=== PATIENT | male | born 1950 | race Caucasian/White ===

== ENCOUNTER 2017-06-06 00:20 | Inpatient (IN) | payer MEDICARE ==
[~2017-06-06] VITALS: Ht 185.4 cm; Wt 79.1 kg
--- NOTE | ~2017-06-06 | HP ---
History And Physical [id number] [facility] [place]. [address] NAME: LUCRETIA SIMMONS : 46 STATUS : ADM IN PAT#: [id number] AGE: 66 ADM/REG DATE : 06/06/17 MR#: [id number] REPORT SERV DATE: 06/07/17 DICTATED BY: CED HACKETT DATE: 06/06/17 REPORT STATUS : Draft TRANSCRIBED BY: MODSherry DATE: 06/06/17 DATE OF ADMISSION: 06/06/2017 POINT OF ENTRY: Emergency Department. PRIMARY CARE PHYSICIAN: Dr. Ami Garcia. PRIMARY UROLOGIST: Dr. Rajat Duque. PRIMARY BUS DISPATCHER INTERSTATE: Dr. Emerson at [place]. CHIEF COMPLAINT: Fevers and palpitations. HISTORY OF PRESENT ILLNESS: Mr. Simmons is a 66-year-old gentleman with a history of BPH status post TURP, complicated by bladder neck contracture, status post recent bladder neck dilatation, who presents to the emergency department today with reports of palpitations and fevers. The patient underwent bladder neck dilatation on 05/28/[address] Duque. Michelle catheter was left in place with plans to keep it in place for approximately 10 days. He also completed a five-day course of prophylactic Keflex, which he states he completed on Wednesday. The patient states his symptoms first began on Wednesday when he noted some skipped beats as well as some racing heart rates, which he describes as palpitations, but these heart rates were in the 80s to 90s. Beginning on Wednesday, he then started to develop low-grade fevers, initially to 99 range, but then became 101.4. He called the urologist on-call and spoke with Dr. Michelle, who wrote a prescription for Keflex and instructed him to present to the emergency department if his fever did not come down, and in fact, his fever went up to 101.6 and therefore presented to the emergency department. Initial evaluation in the emergency department notable for atrial fibrillation, with a temperature of 99 degrees Fahrenheit. Vital signs were stable. His white count was elevated at 25,000 with 13% bands. Urinalysis was positive for urinary tract infection. The patient was given some IV Rocephin as well as some fluids and admitted to the Hospitalist Service. The patient denies any chest pain, palpitations, shortness of breath, abdominal pain, nausea, vomiting, diarrhea, constipation, melena, hematochezia, hemoptysis, or hematemesis. He does state his urine was a little darker, but denied any odor to it. REVIEW OF SYSTEMS: Comprehensive review of systems otherwise negative, unless, listed in the history of present illness. PREVIOUS MEDICAL HISTORY: History And Physical [address] [address] NAME: LUCRETIA SIMMONS : 46 STATUS : ADM IN [facility]#: [id number] AGE: 66 ADM/REG DATE : 06/06/17 MR#: [id number] REPORT SERV DATE: 06/07/17 DICTATED BY: CED HACKETT DATE: 06/06/17 REPORT STATUS : Draft TRANSCRIBED BY: TOMMIE DATE: 06/06/17 1. BPH, status post TURP. 2. Bladder neck contracture, status post dilatation. 3. Paroxysmal atrial fibrillation, on Eliquis. 4. History of ventricular tachycardia, status post cardiac ablation. 5. Hypertension. 6. Basal cell carcinoma of the skin. 7. History of nontuberculous mycobacteria. SURGICAL HISTORY: 1. TURP. 2. Prostate laser vaporization. 3. Bladder neck dilatation. 4. Cardiac ablation. 5. Shoulder replacement. 6. Tonsillectomy. 7. Spinal fusion. ALLERGIES: TO CIPROFLOXACIN, IV DYE, DOXYCYCLINE, AND TETRACYCLINE. HOME MEDICATIONS: Pending at the time of dictation. SOCIAL HISTORY: Denies any tobacco or illicits. Occasional alcohol use. FAMILY MEDICAL HISTORY: Mother of old age into her mid 80s. Father with coronary artery disease. Siblings with lupus and liver cancer. LABS AND IMAGIN. White count is 25.5, hemoglobin is 15.1, hematocrit is 43.6, platelet count is 151 with 13% bands. 2. Sodium is 136, potassium 4.0, chloride 102, carbon dioxide 28, BUN 15, creatinine 1.10, glucose is 139, calcium is 9.2, protein 7.0, albumin is 3.6, bilirubin is 0.9, ALT 26, AST 19, alk phos is 93. 3. Lactic acid is 1.6. 4. CT scan of the abdomen and pelvis per overnight virtual radiology read shows no evidence of any obstruction, pyelonephritis, or inflammatory process. 5. Urinalysis: Specific gravity is 1.015, hazy, with large leukocyte esterase, large blood, with greater than 182 red blood cells as well as white blood cells per high- powered field, with rare yeast. PHYSICAL EXAMINATION: VITAL SIGNS: Temperature is 99.1 degrees Fahrenheit, pulse is 85, respirations 18, saturating 79% on room air, blood pressure 125/76. On recheck, blood pressure is now 142/87, pulse is in the 80s. GENERAL: The patient is awake, alert, in no acute distress. Resting comfortably. He is a well-developed, well-nourished male. HEENT: Atraumatic, normocephalic. Moist mucous membranes. Pupils are equal, round, reactive to light and accommodation. Extraocular eye movements intact. No scleral icterus. History And Physical [address] [address] NAME: LUCRETIA SIMMONS : 46 STATUS : ADM IN [facility]#: [id number] AGE: 66 ADM/REG DATE : 06/06/17 MR#: [id number] REPORT SERV DATE: 06/07/17 DICTATED BY: CED HACKETT DATE: 06/06/17 REPORT STATUS : Draft TRANSCRIBED BY: TOMMIE DATE: 06/06/17 NECK: No jugular venous distention. No carotid bruits. CARDIAC: Regular rate and rhythm. No murmurs, rubs, or gallops. Normal S1, normal S2. LUNGS: Clear to auscultation bilaterally. No wheezes, rhonchi, or crackles. ABDOMEN: Soft, nontender, nondistended with good bowel sounds. No rebound, guarding, or rigidity. EXTREMITIES: Warm and perfused. No cyanosis, clubbing, or edema. SKIN: Warm and dry. PSYCH: Affect appropriate. NEURO: Alert and oriented x3. Cranial nerves 2 through 12 grossly intact. Speech is normal. Gait not assessed. ASSESSMENT AND PLAN: Mr. Simmons is a 66-year-old gentleman who presents with fevers and found to have evidence of a catheter-associated urinary tract infection as well as sepsis. PROBLEM LIST: 1. Catheter-associated urinary tract infection, present on admission. 2. Sepsis. 3. History of paroxysmal atrial fibrillation. 4. History of ventricular tachycardia. 5. History of hypertension. PLAN: 1. Catheter-associated urinary tract infection. We will place the patient on IV vancomycin and cefepime. He does have a urine culture from a few years ago growing Enterococcus faecalis, which is why we are adding on vancomycin. We will consult the patient's primary urologist, Dr. Duque, for assistance as the patient was scheduled to have his Michelle catheter out after 10 days, which happens to be today. Follow up urine culture results. 2. Sepsis. The patient meets criteria with fevers at home as well as leukocytosis and bandemia. Lactic acid is within normal limits. Procalcitonin is also negative. Follow up blood cultures as well as urine culture results. Provide broad-spectrum antibiotics as well as IV fluid hydration. 3. Paroxysmal atrial fibrillation. The patient currently is in normal sinus rhythm. Continue the patient's home medications. 4. DVT prophylaxis. The patient is on Eliquis. 5. Code status. The patient wished to be full code. MARY/TOMMIE Ced Hackett MD / [id number] CC: History And Physical [address] [address] NAME: LUCRETIA SIMMONS : 46 STATUS : ADM IN [facility]#: [id number] AGE: 66 ADM/REG DATE : 06/06/17 MR#: [id number] REPORT SERV DATE: 06/07/17 DICTATED BY: CED HACKETT DATE: 06/06/17 REPORT STATUS : Draft TRANSCRIBED BY: TOMMIE DATE: 06/06/17 Ami Garcia M.D. Rajat Duque M.D. Edwin Emerson III, M.D., F.A.C.C.
--- NOTE | ~2017-06-06 | DS ---
Discharge Summary [address] [place]. [address] NAME: LUCRETIA MENSAH : 46 STATUS : DIS IN PAT#: [id number] AGE: 66 ADM/REG DATE : 06/06/17 MR#: [id number] REPORT SERV DATE: 06/11/17 DICTATED BY: JUAN COLLAZO DATE: 06/11/17 REPORT STATUS : Draft TRANSCRIBED BY: MODL DATE: 06/11/17 ADMISSION DATE: 06/06/2017 DISCHARGE DATE: 06/11/2017 DISCHARGE DIAGNOSES: 1. Urinary tract infection sepsis with Pseudomonas. 2. Pseudomonas bacteremia from the catheter related to urinary tract infection with Pseudomonas. 3. Paroxysmal atrial fibrillation, on Eliquis. 4. Allergies to quinolone. DISC SANDER: Dr. Duque. HISTORY OF PRESENT ILLNESS: This is a 66-year-old male patient who came to the hospital with fever and chills after the procedure. Please see dictated H and P. HOSPITAL COURSE: He was admitted to hospital with a UTI sepsis that was related with a catheter-related UTI. He was put on broad-spectrum antibiotics because he was allergic to quinolone. Culture came back positive in the blood and the urine with Pseudomonas. Again, the patient is allergic to quinolones, so cefepime was elected to be a treatment of choice of antibiotics. Home health was arranged. The patient received a PICC line and will be discharged to home with cefepime 2 g IV q.8 hours until 06/25/2017. DISPOSITION: The patient is discharged to home in stable condition. Dr. Duque will follow outpatient IV antibiotic treatment. EKL/MODL Juan Collazo M.D. / [id number] CC: London Flood M.D.
--- NOTE | ~2017-06-06 | CN ---
Consultation Report [facility] [address] [place]. [address] NAME: TORSTEN SIMMONS : 46 STATUS : ADM IN PAT#: [id number] AGE: 66 ADM/REG DATE : 06/06/17 MR#: [id number] REPORT SERV DATE: 06/06/17 DICTATED BY: TORSTEN SETHI DATE: 06/06/17 REPORT STATUS : Draft TRANSCRIBED BY: MODL DATE: 06/06/17 CONSULTATION DATE OF CONSULTATION: 06/06/2017 This consultation is done for Dr. Rajat Duque on his behalf during his absence. REASON FOR CONSULTATION: Urinary tract infection. REQUESTING PHYSICIAN: Hospitalist Service. IMPRESSION: 1. Catheter-associated urinary tract infection. 2. Recent bladder neck dilation. 3. History of TURP. RECOMMENDATIONS: 1. The patient's fever has resolved with intravenous vancomycin and cefepime. I would continue this at least for now. 2. Urine cultures are pending, see what they show up. 3. Dr. Duque will return tomorrow. The Sethi catheter was scheduled to be removed tomorrow in his office. I will let him make that assessment as to whether to remove the catheter completely and give him a voiding trial or to change it for clean catheter. DISCUSSION: Mr. Simmons is a 66-year-old male who had a cystoscopy, dilation of bladder neck on 05/28/[address] Duque. The patient has had a Sethi catheter in since then. He was on Keflex. He finished his Keflex approximately 48 hours ago. He subsequently began to develop fevers getting as high as 101. He was instructed to come to the emergency room to seek further care. PAST MEDICAL HISTORY: Significant for BPH, paroxysmal atrial fibrillation, hypertension. PAST SURGICAL HISTORY: Includes TURP, cystoscopy and bladder neck dilation, laser surgery on his prostate, shoulder surgery. MEDICATIONS: I do not have a list of his current home medications. At the hospital here, he is on Maxipime and vancomycin. PHYSICAL EXAMINATION: VITAL SIGNS: Last set of vital signs were temperature of 98, blood pressure 114/61, pulse 72, respirations 16, oxygen saturation 98%. GENERAL: He is awake and alert. He is in a pleasant mood. He is in no acute distress. He does not appear toxic. HEENT: His sclerae are anicteric. Consultation Report [facility] [address] [place]. [address] NAME: TORSTEN SIMMONS : 46 STATUS : ADM IN PAT#: [id number] AGE: 66 ADM/REG DATE : 06/06/17 MR#: [id number] REPORT SERV DATE: 06/06/17 DICTATED BY: TORSTEN SETHI DATE: 06/06/17 REPORT STATUS : Draft TRANSCRIBED BY: MODL DATE: 06/06/17 NECK: Supple. LUNGS: Clear. HEART: The heart has regular rate and rhythm. ABDOMEN: Soft and nontender. Flanks are nontender. GENITOURINARY: There is a urethral catheter in his penis. It is draining clear urine. Testes are descended. Nontender. EXTREMITIES: Lower extremities show no deformities. SKIN: Warm and dry without rashes. STUDIES: The patient has had a CT scan of the abdomen and pelvis showing a catheter in place, a thick-walled bladder. No hydronephrosis and no stones. His electrolytes were normal. His glucose was mildly elevated at 139, but it was not fasting. Serum creatinine was 1.1. His white blood cell count was 25,000, hemoglobin 15, hematocrit 43%. Urinalysis showed a large amount of blood, a number of red cells and white cells, no yeast. PF/TOMMIE Torsten Sethi M.D. / [id number] CC: London Ritchie M.D.
[~2017-06-06 00:20] MED LIST: ELIQUIS 5 MG TAB5 MG PO; LOP25 PO; MULTIVIT/MIN PO; PRINZIDE1 TAB PO; VIAGRA25 PO
[2017-06-06 01:20] LABS: BASOPHILS 0.1 %; BASOPHILS ABSOLUTE 0.03 10/3/uL (0.0-0.16); EOSINOPHILS 0.3 %; EOSINOPHILS ABSOLUTE 0.08 10/3/uL (0.0-0.53); HEMATOCRIT 43.6 % (40.0-51.0); HEMOGLOBIN 15.1 g/dL (13.6-17.8); IMMATURE GRANULOCYTES 0.4 %; IMMATURE GRANULOCYTES ABSOLUTE 0.11 10/3/uL (0.0-0.11); LYMPHOCYTES 4.4 %; LYMPHOCYTES ABSOLUTE 1.11 10/3/uL (0.67-4.30); MANUAL DIFF NO %; MEAN CORPUS HGB CONC 34.6 g/dL (32.0-36.0); MEAN CORPUSCULAR HEMOGLOB 31.2 pg (26.0-34.0); MEAN CORPUSCULAR VOLUME 90.1 fL (80-100); MEAN PLATELET VOLUME 11.3 fL (9.2-13.0); MONOCYTES 8.4 %; MONOCYTES ABSOLUTE 2.09 10/3/uL (0.21-1.20); NEUTROPHILS 86.4 %; NEUTROPHILS ABSOLUTE 21.58 10/3/uL (2.02-8.40); PLATELET COUNT 151 10/3/uL (150-400); RBC DISTRIBUTION WIDTH 12.4 % (12.0-16.0); RED CELL COUNT 4.84 10/6/uL (4.7-6.1)
[2017-06-06 01:42] LABS: BAND NEUTROPHILS 13 %; ER DIFF TAT 0 Hrs 26 Mins; LYMPHOCYTES 2 %; MONOCYTES 2 %; PLATELET ESTIMATE ADQ (ADEQUATE); RBC MORPHOLOGY NORM (NORMAL); SEGMENTED NEUTROPHIL (0) 83 %; TOTAL NUCLEATED CELLS 100
[2017-06-06 01:48] LABS: ALBUMIN 3.6 G/DL (3.5-5.0); CALCIUM, SERUM 9.2 MG/DL (8.5-10.4); CHLORIDE, SERUM 102 MMOL/L (96-112); CO2 (CARBON DIOXIDE) 28 MMOL/L (24-34); GFR AFRICAN AMERICAN 80 ML/MIN (>=60); GFR NON AFRICAN AMERICAN 69 ML/MIN (>=60); SGOT(AST) 19 U/L (5-40); SGPT(ALT) 26 U/L (5-65); TOTAL BILIRUBIN 0.9 MG/DL (0-1.2)
[2017-06-06 01:56] LABS: A/G RATIO 1.1 (0.7-1.9); ALKALINE PHOSPHATASE 93 U/L (45-117); BUN (BLOOD UREA NITROGEN) 15 MG/DL (6-23); GLOBULIN 3.4 G/DL (2.5-4.1); GLUCOSE, SERUM 139 MG/DL (60-99); SODIUM, SERUM 136 MMOL/L (135-148)
[2017-06-06 03:03] LABS: ASCORBIC ACID (UR NOT ORDER) 20 (NEG); BILIRUBIN, URINE NEGATIVE (NEG); ER URINALYSIS TAT 0 Hrs 00 Mins; KETONE, URINE NEGATIVE (NEG); LEUKOCYTE ESTERASE(NOT OR LARGE (NEG); NITRITE (URINE) NEG (NEG)
[2017-06-06 03:04] LABS: WBC (NOT ORDERED) (RFLEX) > 182 (0-5)
[2017-06-06 04:04] LABS: LACTATE 1.6 MMOL/L (0.3-2.4)
[2017-06-06 04:10] LABS: PROCALCITONIN 0.32 ng/mL (<0.5)
[2017-06-07 05:18] LABS: HEMOGLOBIN 12.7 g/dL (13.6-17.8); MEAN CORPUSCULAR HEMOGLOB 30.9 pg (26.0-34.0); MEAN CORPUSCULAR VOLUME 90.8 fL (80-100); MEAN PLATELET VOLUME 11.6 fL (9.2-13.0); PLATELET COUNT 140 10/3/uL (150-400); RBC DISTRIBUTION WIDTH 12.4 % (12.0-16.0); RED CELL COUNT 4.11 10/6/uL (4.7-6.1); WHITE BLOOD CELLS 22.9 10/3/uL (4.5-10.5)
[2017-06-07 05:19] LABS: HEMATOCRIT 37.3 % (40.0-51.0); MANUAL DIFF YES %
[2017-06-07 05:28] LABS: BUN (BLOOD UREA NITROGEN) 13 MG/DL (6-23); CALCIUM, SERUM 8.3 MG/DL (8.5-10.4); CHLORIDE, SERUM 107 MMOL/L (96-112); CO2 (CARBON DIOXIDE) 25 MMOL/L (24-34); CREATININE 0.91 MG/DL (0.70-1.30); GFR AFRICAN AMERICAN 100 ML/MIN (>=60); GFR NON AFRICAN AMERICAN 86 ML/MIN (>=60); GLUCOSE, SERUM 118 MG/DL (60-99); POTASSIUM, SERUM 4.2 MMOL/L (3.5-5.3); SODIUM, SERUM 139 MMOL/L (135-148)
[2017-06-07 06:20] LABS: BAND NEUTROPHILS 11 %; IMMATURE GRANS ABSOLUTE (CALC) 0.23 10/3/uL (0.0-0.11); LYMPHOCYTES 4 %; LYMPHOCYTES ABSOLUTE (CALC) 0.92 10/3/uL (0.67-4.30); METAMYELOCYTES 1 %; MONOCYTES 5 %; MONOCYTES ABSOLUTE (CALC) 1.15 10/3/uL (0.21-1.20); NEUTROPHILS ABSOLUTE (CALC) 20.61 10/3/uL (2.02-8.40); PLATELET ESTIMATE SLT DEC (ADEQUATE); SEGMENTED NEUTROPHIL (0) 79 %; TOTAL NUCLEATED CELLS 100; TOXIC GRANULATION 1+
[2017-06-07 06:21] LABS: RBC MORPHOLOGY NORM (NORMAL)
[2017-06-08 07:55] LABS: BASOPHILS 0.2 %; BASOPHILS ABSOLUTE 0.03 10/3/uL (0.0-0.16); EOSINOPHILS 3.4 %; EOSINOPHILS ABSOLUTE 0.48 10/3/uL (0.0-0.53); HEMOGLOBIN 12.5 g/dL (13.6-17.8); IMMATURE GRANULOCYTES 0.4 %; IMMATURE GRANULOCYTES ABSOLUTE 0.05 10/3/uL (0.0-0.11); LYMPHOCYTES 10.3 %; LYMPHOCYTES ABSOLUTE 1.46 10/3/uL (0.67-4.30); MEAN CORPUS HGB CONC 33.8 g/dL (32.0-36.0); MEAN CORPUSCULAR HEMOGLOB 30.7 pg (26.0-34.0); MEAN CORPUSCULAR VOLUME 90.9 fL (80-100); MEAN PLATELET VOLUME 11.2 fL (9.2-13.0); MONOCYTES 6.5 %; MONOCYTES ABSOLUTE 0.92 10/3/uL (0.21-1.20); NEUTROPHILS 79.2 %; NEUTROPHILS ABSOLUTE 11.22 10/3/uL (2.02-8.40); PLATELET COUNT 155 10/3/uL (150-400); RBC DISTRIBUTION WIDTH 12.5 % (12.0-16.0); RED CELL COUNT 4.07 10/6/uL (4.7-6.1); WHITE BLOOD CELLS 14.2 10/3/uL (4.5-10.5)
[2017-06-08 07:56] LABS: MANUAL DIFF NO %
[2017-06-08 08:04] LABS: BUN (BLOOD UREA NITROGEN) 12 MG/DL (6-23); CALCIUM, SERUM 7.9 MG/DL (8.5-10.4); CHLORIDE, SERUM 112 MMOL/L (96-112); CO2 (CARBON DIOXIDE) 24 MMOL/L (24-34); CREATININE 0.89 MG/DL (0.70-1.30); GFR AFRICAN AMERICAN 102 ML/MIN (>=60); GFR NON AFRICAN AMERICAN 88 ML/MIN (>=60); GLUCOSE, SERUM 86 MG/DL (60-99); POTASSIUM, SERUM 3.7 MMOL/L (3.5-5.3); SODIUM, SERUM 143 MMOL/L (135-148); VANCOMYCIN TROUGH 11.5 MCG/ML (10.0-20.0)
[2017-06-09 05:23] LABS: BASOPHILS 0.3 %; BASOPHILS ABSOLUTE 0.03 10/3/uL (0.0-0.16); EOSINOPHILS 5.9 %; EOSINOPHILS ABSOLUTE 0.58 10/3/uL (0.0-0.53); HEMATOCRIT 35.8 % (40.0-51.0); HEMOGLOBIN 12.5 g/dL (13.6-17.8); IMMATURE GRANULOCYTES 0.5 %; IMMATURE GRANULOCYTES ABSOLUTE 0.05 10/3/uL (0.0-0.11); LYMPHOCYTES 16.8 %; LYMPHOCYTES ABSOLUTE 1.65 10/3/uL (0.67-4.30); MANUAL DIFF NO %; MEAN CORPUS HGB CONC 34.9 g/dL (32.0-36.0); MEAN CORPUSCULAR HEMOGLOB 31.4 pg (26.0-34.0); MEAN CORPUSCULAR VOLUME 89.9 fL (80-100); MONOCYTES 6.9 %; MONOCYTES ABSOLUTE 0.68 10/3/uL (0.21-1.20); NEUTROPHILS 69.6 %; NEUTROPHILS ABSOLUTE 6.84 10/3/uL (2.02-8.40); PLATELET COUNT 174 10/3/uL (150-400); RBC DISTRIBUTION WIDTH 12.3 % (12.0-16.0); RED CELL COUNT 3.98 10/6/uL (4.7-6.1); WHITE BLOOD CELLS 9.8 10/3/uL (4.5-10.5)
[2017-06-09 05:34] LABS: BUN (BLOOD UREA NITROGEN) 18 MG/DL (6-23); CALCIUM, SERUM 8.1 MG/DL (8.5-10.4); CHLORIDE, SERUM 110 MMOL/L (96-112); CO2 (CARBON DIOXIDE) 25 MMOL/L (24-34); CREATININE 0.95 MG/DL (0.70-1.30); GFR AFRICAN AMERICAN 95 ML/MIN (>=60); GFR NON AFRICAN AMERICAN 82 ML/MIN (>=60); GLUCOSE, SERUM 84 MG/DL (60-99); POTASSIUM, SERUM 3.9 MMOL/L (3.5-5.3); SODIUM, SERUM 142 MMOL/L (135-148)
[2017-06-10 08:20] LABS: BASOPHILS 0.3 %; BASOPHILS ABSOLUTE 0.04 10/3/uL (0.0-0.16); EOSINOPHILS 2.7 %; EOSINOPHILS ABSOLUTE 0.33 10/3/uL (0.0-0.53); HEMATOCRIT 39.4 % (40.0-51.0); HEMOGLOBIN 13.6 g/dL (13.6-17.8); IMMATURE GRANULOCYTES 0.5 %; IMMATURE GRANULOCYTES ABSOLUTE 0.06 10/3/uL (0.0-0.11); LYMPHOCYTES 11.8 %; LYMPHOCYTES ABSOLUTE 1.42 10/3/uL (0.67-4.30); MANUAL DIFF NO %; MEAN CORPUS HGB CONC 34.5 g/dL (32.0-36.0); MEAN CORPUSCULAR HEMOGLOB 30.6 pg (26.0-34.0); MEAN CORPUSCULAR VOLUME 88.7 fL (80-100); MEAN PLATELET VOLUME 10.9 fL (9.2-13.0); MONOCYTES 6.3 %; MONOCYTES ABSOLUTE 0.76 10/3/uL (0.21-1.20); NEUTROPHILS 78.4 %; NEUTROPHILS ABSOLUTE 9.41 10/3/uL (2.02-8.40); PLATELET COUNT 199 10/3/uL (150-400); RBC DISTRIBUTION WIDTH 12.5 % (12.0-16.0); RED CELL COUNT 4.44 10/6/uL (4.7-6.1)
[2017-06-10 08:41] LABS: ALBUMIN 3.2 G/DL (3.5-5.0); ALKALINE PHOSPHATASE 88 U/L (45-117); BUN (BLOOD UREA NITROGEN) 15 MG/DL (6-23); CALCIUM, SERUM 8.8 MG/DL (8.5-10.4); CHLORIDE, SERUM 107 MMOL/L (96-112); CO2 (CARBON DIOXIDE) 24 MMOL/L (24-34); CREATININE 0.81 MG/DL (0.70-1.30); GFR AFRICAN AMERICAN 106 ML/MIN (>=60); GFR NON AFRICAN AMERICAN 91 ML/MIN (>=60); GLOBULIN 3.1 G/DL (2.5-4.1); GLUCOSE, SERUM 92 MG/DL (60-99); POTASSIUM, SERUM 3.5 MMOL/L (3.5-5.3); SGOT(AST) 20 U/L (5-40); SGPT(ALT) 33 U/L (5-65); SODIUM, SERUM 140 MMOL/L (135-148); TOTAL BILIRUBIN 0.7 MG/DL (0-1.2); TOTAL PROTEIN 6.3 G/DL (6.0-8.5)
[2017-06-10 12:15] LABS: ASCORBIC ACID (UR NOT ORDER) NEG (NEG); BILIRUBIN, URINE NEGATIVE (NEG); KETONE, URINE 20 MG/DL (NEG); LEUKOCYTE ESTERASE(NOT OR NEG (NEG); WBC (NOT ORDERED) (RFLEX) 6 (0-5)
[2017-06-11 05:27] LABS: BUN (BLOOD UREA NITROGEN) 14 MG/DL (6-23); CALCIUM, SERUM 8.6 MG/DL (8.5-10.4); CHLORIDE, SERUM 109 MMOL/L (96-112); CO2 (CARBON DIOXIDE) 25 MMOL/L (24-34); CREATININE 0.98 MG/DL (0.70-1.30); GFR AFRICAN AMERICAN 91 ML/MIN (>=60); GFR NON AFRICAN AMERICAN 79 ML/MIN (>=60); GLUCOSE, SERUM 88 MG/DL (60-99); SODIUM, SERUM 141 MMOL/L (135-148)
[2017-06-11 06:52] LABS: BASOPHILS 0.3 %; BASOPHILS ABSOLUTE 0.03 10/3/uL (0.0-0.16); EOSINOPHILS ABSOLUTE 0.32 10/3/uL (0.0-0.53); HEMATOCRIT 37.5 % (40.0-51.0); HEMOGLOBIN 12.9 g/dL (13.6-17.8); IMMATURE GRANULOCYTES 0.9 %; LYMPHOCYTES 18.7 %; LYMPHOCYTES ABSOLUTE 2.02 10/3/uL (0.67-4.30); MEAN CORPUS HGB CONC 34.4 g/dL (32.0-36.0); MEAN CORPUSCULAR HEMOGLOB 30.4 pg (26.0-34.0); MEAN CORPUSCULAR VOLUME 88.2 fL (80-100); MEAN PLATELET VOLUME 10.8 fL (9.2-13.0); MONOCYTES 8.3 %; NEUTROPHILS 68.8 %; NEUTROPHILS ABSOLUTE 7.44 10/3/uL (2.02-8.40); PLATELET COUNT 204 10/3/uL (150-400); RBC DISTRIBUTION WIDTH 12.4 % (12.0-16.0); RED CELL COUNT 4.25 10/6/uL (4.7-6.1); WHITE BLOOD CELLS 10.8 10/3/uL (4.5-10.5)
[2017-06-11 07:00] LABS: MANUAL DIFF NO %
== END 2017-06-11 15:47 | disposition home health service (06) | DRG 698 ==
LOC: ER 00:20 → 2SO 06:43
PROVIDERS: Emergency Medicine; Internal Medicine; Nurse Practitioner Family; Urology
PROC: 02HV33Z Insertion of Infusion Device into Superior Vena Cava, Percutaneous Approach (ICD-10-PCS; principal; 2017-06-09)
PROC: 4A02X4A Measurement of Cardiac Electrical Activity, Guidance, External Approach (ICD-10-PCS; 2017-06-09)
DX: T83.511A Infection and inflammatory reaction due to indwelling urethral catheter, initial encounter (principal); A40.3 Sepsis due to Streptococcus pneumoniae; I48.0 Paroxysmal atrial fibrillation; I10 Essential (primary) hypertension; N40.0 Benign prostatic hyperplasia without lower urinary tract symptoms; Z96.619 Presence of unspecified artificial shoulder joint; Z85.828 Personal history of other malignant neoplasm of skin; Z88.1 Allergy status to other antibiotic agents; Z79.01 Long term (current) use of anticoagulants; Z98.1 Arthrodesis status; Z91.041 Radiographic dye allergy status; Z82.49 Family history of ischemic heart disease and other diseases of the circulatory system; Z80.9 Family history of malignant neoplasm, unspecified
CPT/HCPCS: 36569; 74176; 80048; 80053; 80202; 81001; 83605; 84145; 85025; 87040; 87077; 87086; 87150; 87186; 96374; 99285; A9270-GY; C1751; J0692; J2405; J2550; J3370